=== PATIENT | female | born 1950 | race Caucasian/White ===

== ENCOUNTER 2016-09-25 11:20 | Emergency (ER) | payer OTHER ==
[2016-09-25 11:27] VITALS: BP 112/79; PULSE 80; RESP 16; TEMP 98.8; O2SAT 97
--- NOTE | 2016-09-25 12:01 | UCPHY ---
H & P Patient Type: New Chief Complaint Nursing Narrative: SINUS HEADACHES SINCE SEPTEMBER 15 HPI/ROS: CHIEF COMPLAINT: Sinus congestion HISTORY OF PRESENT ILLNESS: This patient is a 66 year old woman presenting with sinus congestion and cough, onset 10 days ago. It is associated with frontal sinus pain, ear pain, and post-nasal drainage. She has tried home remedies and treatments, and felt she was improving a few days ago, but now feels that her symptoms have worsened. Mild-moderate in severity. She has been taking 1mg Lorazepam to help her sleep, but has now ran out of her prescription. She denies fever or dyspnea. REVIEW OF SYSTEMS: A ten point review of systems was performed and is negative with the exception of the items mentioned in the HPI. Source: Patient Exam Limitations: No limitations - Personal History Current Tetanus/Diphtheria Vaccine: Unsure - Medical/Surgical History Hx Asthma: No Hx Chronic Respiratory Disease: No Hx Diabetes: No Hx Cardiac Disease: No Hx Renal Disease: No Hx Cirrhosis: No Hx Alcoholism: No Hx HIV/AIDS: No Hx Splenectomy or Spleen Trauma: No Other PMH: APPENDECTOMY, C SECTION, BREAST IMPLANTS - Family History Significant Family History: No pertinent family hx - Social History Smoking Status: Never smoked Alcohol Use: Occasionally Drug Use: None - Physical Exam Exam: General Appearance: Alert. Vital signs reviewed. Eyes: Pupils equal and round, no conjunctival injection, no discharge. Anicteric. ENT, Mouth: Mucous membranes are moist, no oropharyngeal erythema or edema. Post-nasal drip visualized. Tender over maxillary sinuses. Neck: Few anterior lymphadenopathy, supple. Respiratory: Lungs are clear to auscultation; no wheezes, rales, or rhonchi. Cardiovascular: Regular rate and rhythm; no murmur, rub, or gallop. Gastrointestinal: Abdomen is soft and nontender. Skin: Warm and dry, no rashes on exposed skin, normal color. Back: Nontender to palpation over the thoracolumbar spine. No CVAT. Extremities: No lower extremity edema, no calf tenderness or swelling. Neurological: Alert and oriented. Moving all four extremities easily and equally. Psychiatric: Normal affect. Constitutional: Initial Vital Signs Temperature (C) 37.1 C 09/25/16 11:23 Heart Rate 80 09/25/16 11:23 Respiratory Rate 16 09/25/16 11:23 Blood Pressure 112/79 09/25/16 11:23 O2 Sat (%) 97 09/25/16 11:23 O2 Delivery Mode Room Air Allergies/Adverse Reactions: No Known Allergies Allergy (Unverified 09/25/16 11:28) Home Medications: Medication Instructions Recorded Amoxicillin/Clavulanate Pot 875 mg PO BID #14 tab 09/25/16 [Augmentin 875 MG TAB (*)] LORazepam [Ativan] 1 mg PO HS PRN #5 tab 09/25/16 Medical Decision Making ED Course/Re-evaluation: This patient presents with 10 days of sinus congestion and pressure. Symptoms were mildly improving, but then relapsed and continues to be persistent. I discussed this likely represents sinusitis. Will prescribe Augmentin for treatment. The patient also requests prescription for a few doses of Lorazepam to help her sleep until she can contact her PCP on Tuesday for refill. Differential Diagnosis: I considered a differential diagnosis that includes but is not limited to sinusitis, upper respiratory infection, bronchitis, pneumonia, and influenza. Departure - Departure Disposition: Home, Routine, Self-Care Clinical Impression: Sinusitis Qualifiers: Sinusitis location: maxillary Chronicity: acute Recurrence: non-recurrent Qualified Code(s): J01.00 - Acute maxillary sinusitis, unspecified Condition: Good Instructions: Sinusitis (ED) Additional Instructions: Take the Augmentin as prescribed for antibiotic treatment. I have also prescribed you 5 doses of 1mg Lorazepam, to use for sleep at night. Please contact your primary care provider for refill of your Lorazepam in the future. [facility] or the emergency department immediately for high fever, severe headache or neck pain, difficulty breathing, abdominal pain, rash or other worsening of condition. Referrals: Cristal Frank MD [Primary Care Provider] - As per Instructions Prescriptions: Amoxicillin/Clavulanate Pot [Augmentin 875 MG TAB (*)] 875 mg PO BID #14 tab LORazepam [Ativan] 1 mg PO HS PRN #5 tab PRN Reason: insomnia - PQRS PQRS Measurement: 134: Depression screening and followup, PRIME MD-PHQ2 (12 years and older) Over the last 2 weeks, how often have you been bothered by any of the following problems? 1. Feeling down, depressed, or hopeless? 2. Little interest or pleasure in doing things? Patient answered no to both 1 and 2 130: Documentation of medications. Reviewed all patient medications, doses, route and frequency. 226: Do you smoke? No 47: 65 and older: Advanced care planning. Patient has advanced directive. 51: 18 years old and older with diagnosis of COPD, spirometry performance. Patient has no history of COPD 52: 18 years old and older with COPD and symptoms of COPD or FEV1<60% predicted prescribed a B Agonist. does not apply Report Scribed for: Yanet Rosenbaum Report Scribed by: Beckie Padilla Date of Report: 09/25/16 Time of Report: 12:08 Physician Review and Approval Statement: 09/25/16 16:12 Portions of this note were transcribed by the biomedical field service engineer. I, Dr. Yanet Rosenbaum, personally performed the history, physical exam, and medical decision- making; and confirmed the accuracy of the information in the transcribed note.
== END 2016-09-25 12:28 | disposition home or self-care (01) ==
LOC: CED 11:20
DX: J01.00 Acute maxillary sinusitis, unspecified (principal)
CPT/HCPCS: 99204-PO; G0463-PO

== ENCOUNTER 2017-08-26 08:18 | Emergency (ER) | payer OTHER ==
[2017-08-26 08:23] VITALS: TEMP 98.1
[2017-08-26] MEDS ORDERED: ALBUTEROL 3 ML DEYVIAL IH ONE (09:12)
--- NOTE | 2017-08-26 09:19 | EDPHY ---
H & P Smoking Status: Never smoked Time Seen by Provider: 08/26/17 09:01 HPI/ROS: CHIEF COMPLAINT: Cough, shortness of breath, fever, chest pressure HISTORY OF PRESENT ILLNESS: 67-year-old female presents to the emergency department with cough and shortness of breath. She states that she has been sick for about 10 days. She states over last 2 or 3 days however she has felt worse. She feels more short of breath. She had fever of 102-103 degrees. No known ill contacts. No recent travel. She did receive a flu shot. No history of pneumonia. She also complains of severe facial pain. She has seen her primary care provider twice in the last 10 days for this. No calf pain or swelling. REVIEW OF SYSTEMS: Constitutional: Fever as above. Eyes: No double or blurry vision. ENT: No sore throat. Respiratory: Cough, shortness of breath Cardiac: Chest pain Gastrointestinal: No abdominal pain, vomiting or diarrhea. Genitourinary: No dysuria. Musculoskeletal: No neck or back pain. Skin: No rashes. Neurological: No headache. (MarshallAngela Mallory) Past Medical/Surgical History: Appendectomy, , breast implants (Ellie Olivarestruong Mallory) Social History: as in [place]. She is originally from [facility]. (MonaflacoAngela M) Physical Exam: General Appearance: Alert, no distress. 36.7, 123/73, heart rate 84, 96% on room air. Eyes: Pupils equal and round. Extraocular motions are all intact. ENT: Mouth: Mucous membranes moist. Tenderness with palpation especially over the bilateral frontal sinuses. Turbinates are mildly swollen and erythematous. Respiratory: Expiratory rhonchi diffuse especially more in the apices bilaterally. Decreased breath sounds in the bases bilaterally. No respiratory distress. Cardiovascular: Regular rate and rhythm. Gastrointestinal: Abdomen is soft and nontender, no masses, no rebound or guarding, bowel sounds normal. Neurological: Alert and oriented x 3, cranial nerves II through XII grossly intact Skin: Warm and dry, no rashes. Musculoskeletal: Nontender to palpate along the cervical, thoracic or lumbar spine. Neck is supple. Extremities: Full range of motion and no peripheral edema. Psychiatric: Patient is oriented X 3, there is no agitation. (MarshallAngela) Constitutional: Initial Vital Signs Temperature (C) 36.7 C 08/26/17 08:19 Heart Rate 84 08/26/17 08:19 Respiratory Rate 18 08/26/17 08:19 Blood Pressure 123/73 H 08/26/17 08:19 O2 Sat (%) 96 08/26/17 08:19 O2 Delivery Mode Room Air Allergies/Adverse Reactions: No Known Allergies Allergy (Unverified 09/25/16 11:28) Home Medications: Medication Instructions Recorded LORazepam [Ativan] 1 mg PO HS PRN #5 tab 09/25/16 Albuterol [Proventil Inhaler HFA 1 - 2 puffs IH Q4PRN PRN #1 mdi 08/26/17 (*)] Amoxicillin/Clavulanate Pot 875 mg PO BID #14 tab 08/26/17 [Augmentin 875 MG TAB (*)] Medical Decision Making - Diagnostics Imaging: I viewed and interpreted images myself ED Course/Re-evaluation: 67-year-old female presents to the emergency department with ongoing cough. She was negative influenza however positive RSV. Patient was given albuterol nebulizer and feeling much better. She will be discharged home with albuterol MDI. Patient has a history of sinus infections. Last 1 that required antibiotics was approximately 1 year ago. She feels that this is a recurring sinus infection for her. She has pain in her frontal sinuses. She has been treated with amoxicillin in the past. She will be given Augmentin. She was also given ENT referral. Chest x-ray reveals no signs of pneumonia. (Angela Olivares) I did not see this patient while she was in the emergency department. However her care is discussed with the PA while the patient is in the department. I agree with treatment plan management (David Dawkins) Differential Diagnosis: Including but not limited to influenza, RSV, viral upper respiratory infection, bronchitis, pneumonia, sinusitis, allergic rhinitis (Angela Olivares) - Data Points Medications Given: Discontinued Medications Albuterol (Proventil Neb) 3 ml IH EDNOW ONE Stop: 08/26/17 09:13 Last Admin: 08/26/17 10:00 Dose: 3 ml Departure - Departure Disposition: Home, Routine, Self-Care Clinical Impression: RSV infection Sinusitis Qualifiers: Sinusitis location: frontal Chronicity: acute Recurrence: non-recurrent Qualified Code(s): J01.10 - Acute frontal sinusitis, unspecified Condition: Good Instructions: Respiratory Syncytial Virus (ED), Sinusitis (ED) Additional Instructions: Augmentin 875 mg twice daily for 7 days. Albuterol inhaler 2 puffs every 4 hr for 1 week and then as needed. Return to the emergency department if you develop any change in symptoms or if you feel worse in any way. Referrals: Cristal Frank MD [Primary Care Provider] - As per Instructions Prescriptions: Albuterol [Proventil Inhaler HFA (*)] 1 - 2 puffs IH Q4PRN PRN #1 mdi PRN Reason: P.r.n. Dyspnea Amoxicillin/Clavulanate Pot [Augmentin 875 MG TAB (*)] 875 mg PO BID #14 tab
[2017-08-26 11:33] VITALS: BP 113/74; PULSE 88; RESP 16; O2SAT 92
== END 2017-08-26 11:32 | disposition home or self-care (01) ==
DX: J01.10 Acute frontal sinusitis, unspecified (principal); B97.4 Respiratory syncytial virus as the cause of diseases classified elsewhere
CPT/HCPCS: 71046; 99284; J7613